=== PATIENT | male | born 1980 | race African-American/Black ===

== ENCOUNTER 2017-03-16 08:56 | Emergency (ER) | payer SELFPAY ==
[2017-03-16] MEDS ORDERED: predniSONE 20 MG TAB ONE (09:28)
[2017-03-16] MEDS ORDERED: Albuterol Sulfate 2.5 mg/0.5 ml Neb ONE (09:29)
== END 2017-03-16 09:45 | disposition home or self-care (01) ==
LOC: ERS 08:56
DX: J45.901 Unspecified asthma with (acute) exacerbation (principal); I10 Essential (primary) hypertension
CPT/HCPCS: 94640; J7506; J7611; J7620

== ENCOUNTER 2017-04-16 11:07 | Emergency (ER) | payer SELFPAY ==
[2017-04-16] MEDS ORDERED: Albuterol Sulfate 2.5 mg/3 ml Neb ONE (11:16)
[2017-04-16] MEDS ORDERED: Albuterol Sulfate 2.5 mg/0.5 ml Neb ONE ×3 (11:16)
[2017-04-16] MEDS ORDERED: predniSONE 20 MG TAB ONE (11:24)
== END 2017-04-16 12:58 | disposition home or self-care (01) ==
LOC: ERS 11:07
DX: J45.901 Unspecified asthma with (acute) exacerbation (principal); I10 Essential (primary) hypertension
CPT/HCPCS: 94644; J7506; J7611

== ENCOUNTER 2017-04-24 11:41 | Emergency (ER) | payer SELFPAY ==
--- NOTE | 2017-04-24 13:10 | RAD ---
AP VIEW OF CHEST: Date: 04/24/17 INDICATION: Cough. COMPARISON: Prior exam dated 08/24/14. IMPRESSION: No acute cardiopulmonary abnormality. COMMENTS: No air space consolidation or pleural effusion is evident. Cardiomediastinal silhouette is within no rmal limits. No acute osseous abnormality is evident. POS: [facility]
== END 2017-04-24 13:34 | disposition home or self-care (01) ==
LOC: ERS 11:41
DX: J45.909 Unspecified asthma, uncomplicated (principal)
CPT/HCPCS: 71010; 94640; J7620

== ENCOUNTER 2017-05-04 11:35 | Inpatient (IN) | payer SELFPAY ==
[2017-05-04] MEDS ORDERED: Magnesium Sulfate 2 GM/100 ML BAG ONE (11:49)
[2017-05-04] MEDS ORDERED: Dexamethasone 4 mg/ml Vial ONE (11:49)
[2017-05-04] MEDS ORDERED: Albuterol Sulfate 2.5 mg/0.5 ml Neb ONE ×2 (11:53→13:10)
[2017-05-04] MEDS ORDERED: Albuterol Sulfate 2.5 mg/3 ml Neb ONE ×2 (11:54→13:11)
[2017-05-04 12:11] LABS: #Basophils 0.1 thou/uL (0.0-0.2); #Eosinphils 0.4 thou/uL (0.0-0.7); #Lymphocytes 1.9 thou/uL (1.20-3.40); #Neutrophils 6.3 thou/uL (1.40-6.50); %Basophils 0.9 % (0.0-1.0); %Lymphocytes 19.8 % (21.0-51.0); %Monocytes 10.2 % (0.0-10.0); Hematocrit 46.6 % (42.0-52.0); Red Blood Cell (RBC) Count 5.13 mill/uL (4.70-6.10); White Blood Cell (WBC) Count 9.7 thou/uL (4.8-10.8)
--- NOTE | 2017-05-04 12:25 | RAD ---
EXAM: ONE VIEW CHEST: HISTORY: Shortness of breath. Dyspnea. COMPARISON: 05/09/17. FINDINGS: Portable upright chest demonstrates a normal cardiac silhouette. The pulmonary vessels and hilum ar e normal. No consolidation or mass. No pneumothorax or osseous abnormalities. IMPRESSION: No acute cardiopulmonary process. POS: [facility]
[2017-05-04 12:33] LABS: ALT (SGPT) 26 U/L (8-55); AST (SGOT) 23 U/L (5-34); Alkaline Phosphatase 97 U/L (40-150); Anion Gap 10 mmol/L (10-20); BUN (Urea Nitrogen) 11 mg/dL (8.9-20.6); Bilirubin, Total 1.1 mg/dL (0.2-1.2); Calc. Creatinine Clearance 0 mL/min (70-130); Carbon Dioxide 26 mmol/L (22-29); Chloride 107 mmol/L (98-107); Estimated GFR-MDRD Greater than 90; Globulin 3.2 g/dL (2.4-3.5)
[2017-05-04] MEDS ORDERED: Diabetic Tussin 200 MG/10 ML UDCUP PO PRN (14:53)
[2017-05-04] MEDS ORDERED: Senokot 8.6 MG TAB PO PRN (14:53)
[2017-05-04] MEDS ORDERED: Mag-Al 1200 mg/1200 mg/30 ML UDCUP PO PRN (14:53)
[2017-05-04] MEDS ORDERED: Artificial Tears 18 DROP/0.9 ML EA EYE PRN (14:53)
[2017-05-04] MEDS ORDERED: Milk Of Magnesia 30 ML UDCUP PO PRN (14:53)
[2017-05-04] MEDS ORDERED: hydrALAZINE 20 MG/ML VIAL SLOW IVP PRN (14:53)
[2017-05-04] MEDS ORDERED: Ondansetron HCl/PF 4 MG/2 ML Vial IVP PRN (14:53)
[2017-05-04] MEDS ORDERED: Sodium Chloride 0.65% Nasal 44 ML BOT EA NARE PRN (14:53)
[2017-05-04] MEDS ORDERED: Benzonatate 100 MG CAP PO PRN (14:53)
[2017-05-04] MEDS ORDERED: Chloraseptic Spray 180 ml Bottle PO PRN (14:53)
[2017-05-04] MEDS ORDERED: Ondansetron ODT 4 MG TAB PO PRN (14:53)
[2017-05-04] MEDS ORDERED: Loperamide HCl 2 MG CAP PO PRN (14:53)
[2017-05-04] MEDS ORDERED: Eucerin (Mineral Oil/Petrolatum,White) 30 gm Jar TOP PRN (14:53)
[2017-05-04] MEDS ORDERED: cloNIDine 0.1 MG TAB PO PRN (14:53)
[2017-05-04] MEDS ORDERED: Zolpidem Tartrate 5 MG TAB PO PRN (14:53)
[2017-05-04] MEDS ORDERED: Potassium Chloride 20 MEQ TAB PO SCH (15:00)
[2017-05-04 15:19] VITALS: BMI 60.2
[2017-05-04] MEDS ORDERED: FLU VACC QS2017-18 36 mo. & older 0.5 ML SYRINGE IM ONE (15:45)
[2017-05-04] MEDS: Albuterol Sulfate 2.5 mg/3 ml Neb NEB SCH ×2 (18:02→23:35)
--- NOTE | 2017-05-04 18:51 | HP ---
PRIMARY CARE PHYSICIAN: [facility] call admission. REASON FOR ADMISSION: Acute asthma exacerbation. HISTORY OF PRESENT ILLNESS: A 36-year-old -[place] male who has underlying history of asthma as well as morbid obesity, who came to the emergency room with the complaint of increasing shortness of breath for the last 2 weeks, which was gradually getting worse. Patient's symptoms have gotten worse because he also developed upper respiratory infection with a runny nose. He denies any sore throat everyday. He has cough productive of white sputum during daytime and during night time. He also gets brownish yellowish sputum. He denies any fever. He denies any chest pain, but he is feeling his chest is completely congested. He is also feeling that his noses stuffed up. He is not able to breathe and during night time he was not able to sleep well because he has to wake up several times because of difficulty breathing. He was feeling daytime fatigue. He denies any daytime somnolence. He denies any nausea, vomiting, diarrhea or urinary tract infection symptoms. Patient reports that for the last 2 weeks, he was requiring more and more use of nebulizer. Even after that, patient's condition was not improving that was affecting his daily activity and that is why he decided to go to the emergency room for evaluation. In the emergency room, patient was appeared in wheezing bilaterally. He was given several rounds of DuoNeb, albuterol nebulization as well as magnesium sulfate. Even after emergency room treatment, the patient was not feeling up to his normal and that is why ER physician decided to keep this patient in the hospital. The patient denies any pleuritic chest pain. He denies any hemoptysis. He denies any calf tenderness. He denies any . He denies any dizziness or syncope. He denies any exertion related chest pain, palpitation. ALLERGIES: The patient is not tolerating VICODIN. CURRENT HOME MEDICATIONS: Singulair 10 mg p.o. daily, Claritin 10 mg daily, Flonase nasal spray daily, albuterol nebulization every 4 hourly p.r.n. REVIEW OF SYSTEMS: The following complete review of systems was negative, unless otherwise mentioned in the HPI or below: CONSTITUTIONAL: Weight loss or gain, ability to conduct usual activities. SKIN: Rash, itching. EYES: Double vision, pain. ENT/MOUTH: Nose bleeding, neck stiffness, pain, tenderness. CARDIOVASCULAR: Palpitations, dyspnea on exertion, orthopnea. RESPIRATORY: Shortness of breath, wheezing, cough, hemoptysis, fever or night sweats. GASTROINTESTINAL: Poor appetite, abdominal pain, heartburn, nausea, vomiting, constipation, or diarrhea. GENITOURINARY: Urgency, frequency, dysuria, nocturia. MUSCULOSKELETAL: Pain, swelling. NEUROLOGIC/PSYCHIATRIC: Anxiety, depression. ALLERGY/IMMUNOLOGIC: Skin rash, bleeding tendency. Please see my HPI for pertinent positives and negatives. All other review of systems reviewed and negative except as mentioned in the HPI. PAST MEDICAL HISTORY: Morbid obesity, asthma. PAST SURGICAL HISTORY: Left knee surgery x3 for Staph infection. PAST PSYCHIATRIC HISTORY: Reviewed and negative. SOCIAL HISTORY: Patient is working for maintenance for [employer]. He denies any alcohol, tobacco or other illicit drug abuse. He denies any smoking. FAMILY HISTORY: No strong family history of premature coronary artery disease, stroke or cancer. EMERGENCY ROOM COURSE: Patient is given albuterol nebulization x2, Decadron 10 mg IV push, magnesium sulfate 2 gram and IV fluid 1 liter. PHYSICAL EXAMINATION: VITAL SIGNS: On arrival, blood pressure 177/99, pulse 133, respiratory rate 28 , temperature 98.4, saturation 100% on room air. Weight 174.6 kilograms. GENERAL: Patient is currently alert, awake, in mild respiratory distress. HEAD: Normocephalic, atraumatic. EYES: Pupils round, reactive to light. Extraocular muscles intact. ENT: Both nose are stuffed up especially on the right nose is more purulent material, so ear examination normal. Throat examination is normal without any exudate. NECK: Supple. Range of motion is normal. No meningeal signs of irritation, no JVD, no thyromegaly, no carotid bruits. LUNGS: Bilateral audible wheezing heard. No rales noted. No accessory muscles of respiration in use. Morbid obesity limiting examination. CARDIAC: S1, S2 regular, tachycardia, no murmur, no gallop, no rub. ABDOMEN: Morbid obesity limiting examination, but no peritoneal sign, no guarding, no rigidity, no rebound, no epigastric tenderness, no Verdugo sign. BACK: Unremarkable, no CVA tenderness. EXTREMITIES: Upper extremity: Passive movement of all joints are normal. Lower extremity: Bilateral lower extremity edema from venous insufficiency with chronic skin changes in lower extremity. Good distal pulsation. SKIN: No skin rash. HEMATOLOGICAL SYSTEM: No lymphadenopathy. PSYCHIATRIC: Normal affect. SIGNIFICANT LABS: EKG showing sinus tachycardia. Chest x-ray showing no acute cardiopulmonary process. CBC: WBC 9.7, hemoglobin 14.9, platelet 212. BMP: Sodium 140, potassium 3.4, chloride 107, carbon dioxide 26, BUN 11, creatinine 0.77, glucose 108, calcium 10.0. LFT: Total protein 7.0, albumin 3.8, alkaline phosphatase 97, AST 23, ALT 26. Chest x-ray based on my review, no acute cardiopulmonary process. ASSESSMENT AND PLAN/IMPRESSION: 1. Acute asthma exacerbation, likely precipitated by upper respiratory infection. At this point, the patient has tried his home treatment without any improvement. In the emergency room, he was given several albuterol nebulization , magnesium sulfate and Decadron. Even after that, he has no improvement. This patient will require admission to the hospital. We will continue with albuterol nebulization every 6 hourly on an as needed basis and Solu-Medrol 40 mg IV q.6 hourly, Dulera 2 puffs inhalation b.i.d., empiric antibiotic therapy with Levofloxacin 750 mg daily. Symptomatic treatment with Tessalon and Robitussin and we will also add Mucinex 600 mg twice daily. 2. Allergic rhinitis. We will also continue Flonase nasal spray daily, Singulair 10 mg p.o. daily and Claritin 10 mg p.o. daily. 3. Morbid obesity. Patient is suspected for sleep apnea at this point. Patient does not have insurance, he reports that his insurance will kick in, in July. At that time, I advised him to get outpatient sleep study to rule out any sleep apnea. Dietary education given. Healthy lifestyle measures discussed with the patient. 4. Hypokalemia. The patient already received magnesium in the emergency room. We will continue with potassium 40 mEq p.o. daily. 5. Deep venous thrombosis prophylaxis. Lovenox 40 mg subQ daily. 6. Gastrointestinal prophylaxis, Protonix 40 mg p.o. daily. 7. CODE STATUS: The patient is FULL CODE. Patient does not have any surrogate decision maker. Disposition plan based on clinical course, based on patient's severity, I am suspecting patient's stay in hospital more than 2 midnights. Plan of care discussed with the patient in detail. MTDD
[2017-05-04] MEDS: Mometasone/Formoterol 120 PUFF INHALER INH SCH (18:57)
[2017-05-04] MEDS: guaiFENesin ER 600 MG TAB PO SCH (20:44)
[2017-05-04] MEDS: Montelukast Sodium 10 mg Tablet PO SCH (20:44)
[2017-05-05] MEDS: Albuterol Sulfate 2.5 mg/3 ml Neb NEB SCH ×3 (05:56→18:11)
[2017-05-05] MEDS: Mometasone/Formoterol 120 PUFF INHALER INH SCH ×2 (05:58→18:13)
[2017-05-05] MEDS: Enoxaparin Sodium 40 MG/0.4 ML SYRINGE SC SCH (07:52)
[2017-05-05] MEDS: guaiFENesin ER 600 MG TAB PO SCH ×2 (07:52→19:52)
[2017-05-05] MEDS: Loratadine 10 MG TAB PO SCH (07:52)
[2017-05-05] MEDS: Fluticasone Propionate Nasal Spray 16 gm Bottle NASAL SCH (07:53)
[2017-05-05] MEDS ORDERED: Fluticasone Propionate Nasal Spray 16 gm Bottle NASAL SCH (09:00)
--- NOTE | 2017-05-05 11:50 | PDOC.PN ---
- Subjective Encounter Start Date: 05/05/17 Encounter Start Time: 08:50 -: old records requested/rev Patient seen and examined. No new complaints. No overnight events, still has dyspnea - Objective Resuscitation Status: Resuscitation Status FULL:Full Resuscitation MAR Reviewed: Yes Vital Signs & Weight: Vital Signs (12 hours) Temp Pulse Resp BP BP Pulse Ox 05/05/17 09:00 158/93 H 05/05/17 08:00 97.8 F 124 H 22 H 05/05/17 07:24 97.8 F 124 H 22 H 162/95 H 95 05/05/17 05:58 113 H 18 93 L 05/05/17 05:56 113 H 18 93 L 05/05/17 04:00 98.4 F 117 H 22 H 149/71 H 94 L 05/05/17 00:42 94 L 05/04/17 23:53 97.8 F 125 H 22 H 150/82 H 93 L Weight Weight 385 lb I&O: 05/04/17 05/05/17 05/06/17 06:59 06:59 06:59 Intake Total 1614 480 Balance 1614 480 Result Diagrams: 05/04/17 11:56 05/04/17 11:56 Phys Exam - Physical Examination Constitutional: NAD HEENT: PERRLA, moist MMs, sclera anicteric Neck: no JVD, supple Respiratory: no rales, wheezing present Cardiovascular: RRR, no significant murmur, no rub tachycardia Gastrointestinal: soft, non-tender, no distention, positive bowel sounds morbid obesity Musculoskeletal: pulses present, edema present Neurological: non-focal, normal sensation Lymphatic: no nodes Psychiatric: normal affect, A&O x 3 Skin: no rash, normal turgor Dx/Plan (1) Allergic rhinitis Code(s): J30.9 - ALLERGIC RHINITIS, UNSPECIFIED Status: Acute (2) Asthma exacerbation Code(s): J45.901 - UNSPECIFIED ASTHMA WITH (ACUTE) EXACERBATION Status: Acute (3) Hypertension Code(s): I10 - ESSENTIAL (PRIMARY) HYPERTENSION Status: Acute (4) Hypokalemia Code(s): E87.6 - HYPOKALEMIA Status: Acute (5) Sinus tachycardia Code(s): R00.0 - TACHYCARDIA, UNSPECIFIED Status: Acute (6) Morbid obesity with BMI of 60.0-69.9, adult Code(s): E66.01 - MORBID (SEVERE) OBESITY DUE TO EXCESS CALORIES; Z68.44 - BODY MASS INDEX (BMI) 60.0-69.9, ADULT Status: Chronic (7) MOLLY (obstructive sleep apnea) Code(s): G47.33 - OBSTRUCTIVE SLEEP APNEA (ADULT) (PEDIATRIC) Status: Suspected - Plan cont current plan of care, continue antibiotics, respiratory therapy * reduce solumedrol * will get CT angio chest for dyspnea and tachycardia * medication reviewed as below * symptomatic treatment * continue current optimum medical therapy for asthma * pt is not ready for discharge yet. Review of Systems - Review of Systems Constitutional: negative: Fever, Chills, Sweats, Weakness, Malaise, Other Eyes: negative: Pain, Vision Change, Conjunctivae Inflammation, Eyelid Inflammation, Redness, Other ENT: Nose Discharge. negative: Ear Pain, Ear Discharge, Nose Pain, Nose Congestion, Mouth Pain, Mouth Swelling, Throat Pain, Throat Swelling, Other Respiratory: Cough, Shortness of Breath, Wheezing. negative: Dry, Hemoptysis, SOB with Excertion, Pleuritic Pain, Sputum Cardiovascular: negative: Chest Pain, Palpitations, Orthopnea, Paroxysmal Noc. Dyspnea, Edema, Light Headedness, Other Gastrointestinal: negative: Nausea, Vomiting, Abdominal Pain, Diarrhea, Constipation, Melena, Hematochezia, Other Genitourinary: negative: Dysuria, Frequency, Incontinence, Hematuria, Retention , Other Musculoskeletal: negative: Neck Pain, Shoulder Pain, Arm Pain, Back Pain, Hand Pain, Leg Pain, Foot Pain, Other Skin: negative: Rash, Lesions, Arvind, Bruising, Other - Medications/Allergies Allergies/Adverse Reactions: Allergies Allergy/AdvReac Type Severity Reaction Status Date / Time acetaminophen [From Vicodin] Allergy Verified 05/04/17 15:20 hydrocodone bitartrate Allergy Verified 05/04/17 15:20 [From Vicodin] Medications: Current Medications Al Hydroxide/Mg Hydroxide (Maalox) 30 ml PO Q6H PRN PRN Reason: Heartburn or Indigestion Albuterol Sulfate (Ventolin) 2.5 mg NEB [id number] NARESH Last Admin: 05/05/17 05:56 Dose: 2.5 mg Artificial Tears (Tears Naturale) 0 drop EA EYE PRN PRN PRN Reason: Dry Eyes Benzonatate (Tessalon) 200 mg PO Q6H PRN PRN Reason: Cough Clonidine (Catapres) 0.1 mg PO Q4H PRN PRN Reason: Systolic BP > 180 Enoxaparin Sodium (Lovenox) 40 mg SC 0900 [facility] Last Admin: 05/05/17 07:52 Dose: Not Given Fluticasone Propionate (Flonase Nasal [place]) 0 gm NASAL DAILY [facility] Last Admin: 05/05/17 07:53 Dose: 1 spr Guaifenesin (Robitussin Sf) 200 mg PO Q4H PRN PRN Reason: Cough Guaifenesin (Mucinex) 600 mg PO Q12HR [facility] Last Admin: 05/05/17 07:52 Dose: 600 mg Hydralazine HCl (Apresoline) 10 mg SLOW IVP Q4H PRN PRN Reason: Systolic BP > 180 Levofloxacin 750 mg/ Device 150 mls @ 100 mls/hr IVPB 1500 [facility] Last Admin: 05/04/17 16:02 Dose: 150 mls Loperamide HCl (Imodium) 2 mg PO PRN PRN PRN Reason: Diarrhea/Loose Stools Loratadine (Claritin) 10 mg PO DAILY [facility] Last Admin: 05/05/17 07:52 Dose: 10 mg Magnesium Hydroxide (Milk Of Magnesium) 30 ml PO DAILYPRN PRN PRN Reason: Constipation Methylprednisolone Sodium Succinate (Solu-Medrol) 20 mg IVP Q8HR [facility] Mineral Oil/White Petrolatum (Eucerin Cream) 0 gm TOP BIDPRN PRN PRN Reason: Dry Skin Mometasone Furoate/Formoterol Fumar (Dulera 200 Mcg/5 Mcg Inhaler) 2 puff INH BID-RT [facility] Last Admin: 05/05/17 05:58 Dose: 2 puff Montelukast Sodium (Singulair) 10 mg PO QPM [facility] Last Admin: 05/04/17 20:44 Dose: 10 mg Ondansetron HCl (Zofran Odt) 4 mg PO Q6H PRN PRN Reason: Nausea/Vomiting Ondansetron HCl (Zofran) 4 mg IVP Q6H PRN PRN Reason: Nausea/Vomiting Pantoprazole Sodium (Protonix) 40 mg PO DAILY [facility] Last Admin: 05/05/17 07:52 Dose: 40 mg Phenol (Chloraseptic [place] 180 Ml Bot) 0 ml PO PRN PRN PRN Reason: Sore Throat Senna (Senokot) 2 tab PO HSPRN PRN PRN Reason: Constipation Sodium Chloride ([place] Nasal [place] 0.65%) 0 ml EA NARE QIDPRN PRN PRN Reason: Nasal Congestion Sodium Chloride (Flush - Normal Saline) 10 ml IVF Q12HR NARESH Sodium Chloride (Flush - Normal Saline) 10 ml IVF PRN PRN PRN Reason: Saline Flush Zolpidem Tartrate (Ambien) 5 mg PO HSPRN PRN PRN Reason: Insomnia
[2017-05-05] MEDS ORDERED: ISOVUE-370 76%-LOCM 1 ML ONE (14:19)
--- NOTE | 2017-05-05 15:54 | CT ---
CT ANGIO OF CHEST PERFORMED WITH INTRAVENOUS CONTRAST ENHANCEMENT WITH 3D RECONSTRUCTION 05/05/17 HISTORY: Shortness of breath, tachypnea. The lungs show some minimal interstitial change in the left upper lobe. This could represent some min imal patchy pneumonitis. No confluent process. No pulmonary nodules or pleural effusions. Some areas of air trapping demonstrated. There is somewhat prominent soft tissue density seen within the anterior mediastinum. In reviewing a previous examination, which was a CT of the neck performed 11/20/12, density appears fairly similar to that exam, probably represents prominent residual thymic tissue in this patient. The thoracic aorta is normal in caliber. This examination is nondiagnostic for evaluation for pulmonary embolus as the bolus is very suboptima l. The visualized liver parenchyma shows no focal findings. IMPRESSION: 1. Minimal interstitial change of the left upper lobe which could represent some minimal patchy pneumonitis. Evidence of some air trapping within the lungs. 2. Prominent soft tissue density in the anterior mediastinum. This probably represents prominent residual thymic tissue much more prominent than typically seen. There is an area of nodularity along the left posterior border of this but this finding is stable as compared to the previous 2013 study. 3. Nondiagnostic study for evaluation for pulmonary embolus. Consideration for nuclear medicine study is suggested. POS: [facility]
[2017-05-05] MEDS: Montelukast Sodium 10 mg Tablet PO SCH (19:52)
[2017-05-06] MEDS: Albuterol Sulfate 2.5 mg/3 ml Neb NEB SCH ×4 (00:14→18:21)
[2017-05-06 04:35] LABS: #Lymphocytes 0.7 thou/uL (1.20-3.40); #Monocytes 1.5 thou/uL (0.11-0.59); #Neutrophils 13.7 thou/uL (1.40-6.50); %Basophils 0.1 % (0.0-1.0); %Eosinophils 0.1 % (0.0-10.0); %Lymphocytes 4.1 % (21.0-51.0); %Monocytes 9.3 % (0.0-10.0); Hematocrit 45.4 % (42.0-52.0); Mean Platelet Volume 7.8 fL (7.4-10.4); Red Blood Cell (RBC) Count 4.95 mill/uL (4.70-6.10); White Blood Cell (WBC) Count 15.9 thou/uL (4.8-10.8)
[2017-05-06 04:49] LABS: Anion Gap 10 mmol/L (10-20); BUN (Urea Nitrogen) 11 mg/dL (8.9-20.6); BUN/Creatinine Ratio 14.67; Calc. Creatinine Clearance 336 mL/min (70-130); Calcium 9.5 mg/dL (7.8-10.44); Carbon Dioxide 29 mmol/L (22-29); Chloride 105 mmol/L (98-107); Estimated GFR-MDRD Greater than 90; Magnesium 2.3 mg/dL (1.6-2.6); Phosphorus 3.1 mg/dL (2.3-4.7)
[2017-05-06] MEDS: Mometasone/Formoterol 120 PUFF INHALER INH SCH ×2 (06:34→18:23)
--- NOTE | 2017-05-06 07:02 | PDOC.PN ---
- Subjective Encounter Start Date: 05/06/17 Encounter Start Time: 07:01 Patient seen and examined. No new complaints. No overnight events - Objective Resuscitation Status: Resuscitation Status FULL:Full Resuscitation MAR Reviewed: Yes Vital Signs & Weight: Vital Signs (12 hours) Temp Pulse Resp BP Pulse Ox 05/06/17 06:34 107 H 16 94 L 05/06/17 06:32 107 H 16 94 L 05/06/17 04:45 97.8 F 107 H 20 125/80 94 L 05/06/17 03:01 93 L 05/06/17 00:14 116 H 16 95 05/05/17 23:51 98.4 F 116 H 20 137/77 93 L 05/05/17 20:00 98.3 F 120 H 20 96 Weight Weight 385 lb I&O: 05/05/17 05/06/17 05/07/17 06:59 06:59 06:59 Intake Total 1614 2730 Output Total 350 Balance 1614 2380 Result Diagrams: 05/06/17 04:01 05/06/17 04:01 Radiology Reviewed by me: Yes (CTA) Phys Exam - Physical Examination Constitutional: NAD HEENT: PERRLA, moist MMs, sclera anicteric Neck: no JVD, supple Respiratory: no rales, wheezing present Cardiovascular: RRR, no significant murmur, no rub Gastrointestinal: soft, non-tender, no distention, positive bowel sounds morbid obesity Musculoskeletal: no edema, pulses present Neurological: non-focal, normal sensation Psychiatric: normal affect, A&O x 3 Skin: no rash, normal turgor Dx/Plan (1) Community acquired bacterial pneumonia Code(s): J15.9 - UNSPECIFIED BACTERIAL PNEUMONIA Status: Acute (2) Asthma exacerbation Code(s): J45.901 - UNSPECIFIED ASTHMA WITH (ACUTE) EXACERBATION Status: Acute (3) Allergic rhinitis Code(s): J30.9 - ALLERGIC RHINITIS, UNSPECIFIED Status: Acute (4) Hypertension Code(s): I10 - ESSENTIAL (PRIMARY) HYPERTENSION Status: Acute (5) Hypokalemia Code(s): E87.6 - HYPOKALEMIA Status: Resolved (6) Sinus tachycardia Code(s): R00.0 - TACHYCARDIA, UNSPECIFIED Status: Acute (7) Morbid obesity with BMI of 60.0-69.9, adult Code(s): E66.01 - MORBID (SEVERE) OBESITY DUE TO EXCESS CALORIES; Z68.44 - BODY MASS INDEX (BMI) 60.0-69.9, ADULT Status: Chronic (8) MOLLY (obstructive sleep apnea) Code(s): G47.33 - OBSTRUCTIVE SLEEP APNEA (ADULT) (PEDIATRIC) Status: Suspected - Plan cont current plan of care, continue antibiotics, respiratory therapy * medication reviewed as below * symptomatic treatment * pt is improving * continue current optimum medical therapy * if doing well will consider discharge soon * continue levaquin. Review of Systems - Review of Systems Constitutional: negative: Fever, Chills, Sweats, Weakness, Malaise, Other Eyes: negative: Pain, Vision Change, Conjunctivae Inflammation, Eyelid Inflammation, Redness, Other ENT: negative: Ear Pain, Ear Discharge, Nose Pain, Nose Discharge, Nose Congestion, Mouth Pain, Mouth Swelling, Throat Pain, Throat Swelling, Other Respiratory: Cough, Shortness of Breath, Wheezing. negative: Dry, Hemoptysis, SOB with Excertion, Pleuritic Pain, Sputum Cardiovascular: negative: Chest Pain, Palpitations, Orthopnea, Paroxysmal Noc. Dyspnea, Edema, Light Headedness, Other Gastrointestinal: negative: Nausea, Vomiting, Abdominal Pain, Diarrhea, Constipation, Melena, Hematochezia, Other Genitourinary: negative: Dysuria, Frequency, Incontinence, Hematuria, Retention , Other Musculoskeletal: negative: Neck Pain, Shoulder Pain, Arm Pain, Back Pain, Hand Pain, Leg Pain, Foot Pain, Other Skin: negative: Rash, Lesions, Arvind, Bruising, Other - Medications/Allergies Allergies/Adverse Reactions: Allergies Allergy/AdvReac Type Severity Reaction Status Date / Time acetaminophen [From Vicodin] Allergy Verified 05/04/17 15:20 hydrocodone bitartrate Allergy Verified 05/04/17 15:20 [From Vicodin] Medications: Current Medications Al Hydroxide/Mg Hydroxide (Maalox) 30 ml PO Q6H PRN PRN Reason: Heartburn or Indigestion Albuterol Sulfate (Ventolin) 2.5 mg NEB [id number] NARESH Last Admin: 05/06/17 06:32 Dose: 2.5 mg Artificial Tears (Tears Naturale) 0 drop EA EYE PRN PRN PRN Reason: Dry Eyes Benzonatate (Tessalon) 200 mg PO Q6H PRN PRN Reason: Cough Clonidine (Catapres) 0.1 mg PO Q4H PRN PRN Reason: Systolic BP > 180 Enoxaparin Sodium (Lovenox) 40 mg SC 0900 [facility] Last Admin: 05/05/17 07:52 Dose: Not Given Fluticasone Propionate (Flonase Nasal [place]) 0 gm NASAL DAILY [facility] Last Admin: 05/05/17 07:53 Dose: 1 spr Guaifenesin (Robitussin Sf) 200 mg PO Q4H PRN PRN Reason: Cough Guaifenesin (Mucinex) 600 mg PO Q12HR [facility] Last Admin: 05/05/17 19:52 Dose: 600 mg Hydralazine HCl (Apresoline) 10 mg SLOW IVP Q4H PRN PRN Reason: Systolic BP > 180 Levofloxacin 750 mg/ Device 150 mls @ 100 mls/hr IVPB 1500 [facility] Last Admin: 05/05/17 14:21 Dose: 150 mls Loperamide HCl (Imodium) 2 mg PO PRN PRN PRN Reason: Diarrhea/Loose Stools Loratadine (Claritin) 10 mg PO DAILY [facility] Last Admin: 05/05/17 07:52 Dose: 10 mg Magnesium Hydroxide (Milk Of Magnesium) 30 ml PO DAILYPRN PRN PRN Reason: Constipation Methylprednisolone Sodium Succinate (Solu-Medrol) 20 mg IVP Q8HR [facility] Last Admin: 05/06/17 05:22 Dose: 20 mg Mineral Oil/White Petrolatum (Eucerin Cream) 0 gm TOP BIDPRN PRN PRN Reason: Dry Skin Mometasone Furoate/Formoterol Fumar (Dulera 200 Mcg/5 Mcg Inhaler) 2 puff INH BID-RT [facility] Last Admin: 05/06/17 06:34 Dose: 2 puff Montelukast Sodium (Singulair) 10 mg PO QPM [facility] Last Admin: 05/05/17 19:52 Dose: 10 mg Ondansetron HCl (Zofran Odt) 4 mg PO Q6H PRN PRN Reason: Nausea/Vomiting Ondansetron HCl (Zofran) 4 mg IVP Q6H PRN PRN Reason: Nausea/Vomiting Pantoprazole Sodium (Protonix) 40 mg PO DAILY [facility] Last Admin: 05/05/17 07:52 Dose: 40 mg Phenol (Chloraseptic [place] 180 Ml Bot) 0 ml PO PRN PRN PRN Reason: Sore Throat Senna (Senokot) 2 tab PO HSPRN PRN PRN Reason: Constipation Sodium Chloride ([place] Nasal [place] 0.65%) 0 ml EA NARE QIDPRN PRN PRN Reason: Nasal Congestion Sodium Chloride (Flush - Normal Saline) 10 ml IVF Q12HR [facility] Last Admin: 05/05/17 19:53 Dose: 10 ml Sodium Chloride (Flush - Normal Saline) 10 ml IVF PRN PRN PRN Reason: Saline Flush Zolpidem Tartrate (Ambien) 5 mg PO HSPRN PRN PRN Reason: Insomnia
[2017-05-06] MEDS: Loratadine 10 MG TAB PO SCH (08:36)
[2017-05-06] MEDS: guaiFENesin ER 600 MG TAB PO SCH ×2 (08:36→20:38)
[2017-05-06] MEDS: Enoxaparin Sodium 40 MG/0.4 ML SYRINGE SC SCH (08:39)
[2017-05-06] MEDS: Fluticasone Propionate Nasal Spray 16 gm Bottle NASAL SCH (08:39)
[2017-05-06] MEDS ORDERED: Ketorolac Tromethamine 30 MG/ML VIAL ONE (11:05)
[2017-05-06] MEDS ORDERED: Ibuprofen 200 MG TAB PO PRN (12:19)
[2017-05-06] MEDS: Montelukast Sodium 10 mg Tablet PO SCH (20:37)
[2017-05-07] MEDS: Albuterol Sulfate 2.5 mg/3 ml Neb NEB SCH ×2 (00:38→06:17)
[2017-05-07 05:40] VITALS: TEMP 97.8
[2017-05-07] MEDS: Mometasone/Formoterol 120 PUFF INHALER INH SCH (06:18)
[2017-05-07 07:12] VITALS: BP 138/91
--- NOTE | 2017-05-07 07:54 | PDOC.PN ---
- Subjective Encounter Start Date: 05/07/17 Encounter Start Time: 07:52 Mr. Winslow was seen today in follow-up of Asthma. He says he is feeling today. He is breathing better, and says he has been able to walk some without difficulty. - Objective Resuscitation Status: Resuscitation Status FULL:Full Resuscitation MAR Reviewed: Yes Vital Signs & Weight: Vital Signs (12 hours) Temp Pulse Resp BP BP Pulse Ox 05/07/17 07:11 97.8 F 100 22 H 138/91 H 100 05/07/17 06:17 98 16 97 05/07/17 04:30 97.8 F 98 18 128/84 97 05/07/17 00:52 96 05/07/17 00:38 109 H 16 05/06/17 20:00 98.4 F 109 H 20 Weight Weight 385 lb I&O: 05/06/17 05/07/17 05/08/17 06:59 06:59 06:59 Intake Total 2730 1200 Output Total 350 Balance 2380 1200 Result Diagrams: 05/06/17 04:01 05/06/17 04:01 Phys Exam - Physical Examination HEENT: PERRLA Respiratory: wheezing present +Faint wheeze, no rales or rhonchi Cardiovascular: RRR, no significant murmur Gastrointestinal: soft, non-tender, positive bowel sounds Musculoskeletal: no edema Dx/Plan (1) Allergic rhinitis Code(s): J30.9 - ALLERGIC RHINITIS, UNSPECIFIED Status: Acute (2) Asthma exacerbation Code(s): J45.901 - UNSPECIFIED ASTHMA WITH (ACUTE) EXACERBATION Status: Acute (3) Morbid obesity with BMI of 60.0-69.9, adult Code(s): E66.01 - MORBID (SEVERE) OBESITY DUE TO EXCESS CALORIES; Z68.44 - BODY MASS INDEX (BMI) 60.0-69.9, ADULT Status: Chronic (4) MOLLY (obstructive sleep apnea) Code(s): G47.33 - OBSTRUCTIVE SLEEP APNEA (ADULT) (PEDIATRIC) Status: Suspected - Plan * Acute respiratory failure due to Asthma exacerbation- improved * He is stable for discharge, and can transition to oral antibiotics, and Steroids, and inhales * Close outpatient follow-up at [facility] * MOLLY- stable
[2017-05-07] MEDS: Enoxaparin Sodium 40 MG/0.4 ML SYRINGE SC SCH (09:20)
[2017-05-07] MEDS: Loratadine 10 MG TAB PO SCH (09:23)
[2017-05-07] MEDS: guaiFENesin ER 600 MG TAB PO SCH (09:23)
[2017-05-07] MEDS: Fluticasone Propionate Nasal Spray 16 gm Bottle NASAL SCH (09:23)
--- NOTE | 2017-05-07 12:03 | DIS ---
DATE OF ADMISSION: 05/04/2017 DATE OF DISCHARGE: 05/07/2017 PRIMARY CARE PHYSICIAN: [facility]. DISCHARGE DISPOSITION: Home. PRIMARY DISCHARGE DIAGNOSES: 1. Acute respiratory failure secondary to asthma exacerbation. 2. Asthma exacerbation. 3. Morbid obesity. 4. History of obstructive sleep apnea. DISCHARGE MEDICATIONS: Include Dulera inhaler 200 mcg/5 two puffs twice daily, montelukast 10 mg ty ly, prednisone 10 mg daily, Claritin 10 mg daily, Levaquin 500 mg daily for 5 days and albuterol nebs . PROCEDURES DONE DURING ADMISSION: The patient had a CT angiogram of the chest which was negative for pulmonary embolism; however, there was minimal interstitial change in the left upper lobe which coul d represent some minimal pneumonitis and a prominent soft tissue density in the anterior mediastinum. However, this area was stable since the prior study in 2012. CODE STATUS: FULL CODE. ALLERGIES: To ACETAMINOPHEN and HYDROCODONE. HOSPITAL COURSE: Mr. Winslow is a pleasant 36-year-old gentleman who was admitted to the hospital after complaining of difficulty breathing and wheezing, cough, and congestion. He was found to have an as thma exacerbation as he has a history of chronic asthma. He was treated with IV antibiotics as well as IV steroids and neb treatments and improved over the course of the next few days. If possible samira t his trigger is [place] been [place] since he had lived [facility] and it is likely that this possibly triggered his attack. He denies smoking. However, he did imp rove with treatment and will have close outpatient followup at the [facility].
== END 2017-05-07 11:32 | disposition home or self-care (01) | DRG 202 ==
LOC: ERS 11:35 → T4-A 14:03
PROVIDERS: ADMIT Internal Medicine; ATTEND Internal Medicine
DX: J45.901 Unspecified asthma with (acute) exacerbation (principal); J96.00 Acute respiratory failure, unspecified whether with hypoxia or hypercapnia; Z68.44 Body mass index [BMI] 60.0-69.9, adult; E66.01 Morbid (severe) obesity due to excess calories; J30.9 Allergic rhinitis, unspecified; E87.6 Hypokalemia; Z23 Encounter for immunization; G47.33 Obstructive sleep apnea (adult) (pediatric); R00.0 Tachycardia, unspecified
CPT/HCPCS: 36415; 71010; 71275; 80053; 80069; 83735; 85025; 87040; 90471; 90682; 93005; 94640; 96365; 96375; A4216; G0008; J1100; J1650; J1885; J1956; J2920; J3475; J7611; Q2036

== ENCOUNTER 2017-05-22 08:40 | Emergency (ER) | payer SELFPAY ==
[2017-05-22] MEDS ORDERED: Albuterol Sulfate 2.5 mg/3 ml Neb ONE (09:05)
[2017-05-22] MEDS ORDERED: Dexamethasone 10 MG/ML VIAL ONE (09:07)
--- NOTE | 2017-05-22 09:16 | RAD ---
CHEST 1 VIEW: Date: 05/22/17 HISTORY: Dyspnea. COMPARISON: Chest 1 view dated 05/04/17. FINDINGS: Lungs are clear. No pneumothorax or effusion. Cardiac silhouette and mediastinal contours are within normal limits. IMPRESSION: No acute intrathoracic abnormality. POS: [facility]
== END 2017-05-22 10:00 | disposition home or self-care (01) ==
LOC: ERS 08:40
DX: J45.901 Unspecified asthma with (acute) exacerbation (principal); Z79.899 Other long term (current) drug therapy
CPT/HCPCS: 71010; 94640; 96372; J1100; J7611; J7620

== ENCOUNTER 2017-06-08 14:20 | Emergency (ER) | payer SELFPAY ==
--- NOTE | 2017-06-08 15:11 | RAD ---
CHEST TWO VIEWS HISTORY: Dyspnea. COMPARISON: 05/22/2017. FINDINGS: Cardiac silhouette and pulmonary vasculature are unremarkable. Mediastinum is midline. There is no confluent air space consolidation, pneumothorax, or pleural fluid evident. IMPRESSION: No active cardiopulmonary abnormalities are demonstrated. POS: [facility]
[2017-06-08 15:37] LABS: #Basophils 0.2 thou/uL (0.0-0.2); #Eosinphils 0.3 thou/uL (0.0-0.7); #Lymphocytes 1.6 thou/uL (1.20-3.40); #Neutrophils 4.1 thou/uL (1.40-6.50); %Basophils 2.4 % (0.0-1.0); %Eosinophils 4.3 % (0.0-10.0); %Lymphocytes 22.1 % (21.0-51.0); %Monocytes 14.2 % (0.0-10.0); Mean Platelet Volume 7.8 fL (7.4-10.4); White Blood Cell (WBC) Count 7.1 thou/uL (4.8-10.8)
[2017-06-08 15:56] LABS: ALT (SGPT) 32 U/L (8-55); AST (SGOT) 31 U/L (5-34); Alkaline Phosphatase 95 U/L (40-150); Anion Gap 13 mmol/L (10-20); BUN (Urea Nitrogen) 9 mg/dL (8.9-20.6); Bilirubin, Total 1.6 mg/dL (0.2-1.2); Calc. Creatinine Clearance 0 mL/min (70-130); Calcium 10.2 mg/dL (7.8-10.44); Carbon Dioxide 25 mmol/L (22-29); Chloride 105 mmol/L (98-107); Estimated GFR-MDRD Greater than 90; Globulin 3.4 g/dL (2.4-3.5); Protein, Total 7.3 g/dL (6.0-8.3)
[2017-06-08] MEDS ORDERED: Water For Inject, Bacteriostat 30 ML ONE (16:36)
[2017-06-08] MEDS ORDERED: methylPREDNISolone Sod Succ/PF 125 MG/2 ML VIAL ONE (16:36)
--- NOTE | 2017-07-04 20:53 | EKG ---
Test Reason : Blood Pressure : / mmHG Vent. Rate : 122 BPM Atrial Rate : 122 BPM P-R Int : 124 ms QRS Dur : 070 ms QT Int : 292 ms P-R-T Axes : 046 031 027 degrees QTc Int : 416 ms Sinus tachycardia Otherwise normal ECG Confirmed by HUMZA YIP, KIANNA ([id number]), editorial cartoonist GEORGE PASCAL ([id number]) on 07/04/2017 8:52:25 PM Referred By: Confirmed By:KIANNA CHING MD
== END 2017-06-08 17:53 | disposition home or self-care (01) ==
LOC: ERS 14:20
DX: J45.901 Unspecified asthma with (acute) exacerbation (principal)
CPT/HCPCS: 36415; 71020; 80053; 85025; 93005; 94640; 96361; 96374; J2930; J7620

== ENCOUNTER 2017-10-12 07:22 | Emergency (ER) | payer SELFPAY ==
[2017-10-12] MEDS ORDERED: Albuterol Sulfate 2.5 mg/0.5 ml Neb ONE ×4 (08:52)
== END 2017-10-12 09:04 | disposition home or self-care (01) ==
LOC: ERS 07:22
DX: H60.92 Unspecified otitis externa, left ear (principal); J45.909 Unspecified asthma, uncomplicated; Z79.899 Other long term (current) drug therapy
CPT/HCPCS: 94640; J7611; J7620

== ENCOUNTER 2018-07-11 13:25 | Emergency (ER) | payer SELFPAY | END 2018-07-11 13:59 | disposition home or self-care (01) | LOC: ERS 13:25 | DX: K04.7 Periapical abscess without sinus (principal); K02.9 Dental caries, unspecified; J45.909 Unspecified asthma, uncomplicated | CPT/HCPCS: 99282 ==

== ENCOUNTER 2018-07-12 18:57 | Emergency (ER) | payer SELFPAY | END 2018-07-12 20:15 | disposition home or self-care (01) | LOC: ERS 18:57 | DX: K03.81 Cracked tooth (principal); E66.9 Obesity, unspecified; J45.909 Unspecified asthma, uncomplicated; Z79.891 Long term (current) use of opiate analgesic; Z79.899 Other long term (current) drug therapy | CPT/HCPCS: 99282 ==

== ENCOUNTER 2018-07-16 03:58 | Emergency (ER) | payer SELFPAY | END 2018-07-16 05:45 | disposition home or self-care (01) | LOC: ERS 03:58 | DX: K91.840 Postprocedural hemorrhage of a digestive system organ or structure following a digestive system procedure (principal); J45.909 Unspecified asthma, uncomplicated; Z79.899 Other long term (current) drug therapy; Z79.51 Long term (current) use of inhaled steroids | CPT/HCPCS: 99283 ==

== ENCOUNTER 2018-07-20 08:05 | Emergency (ER) | payer SELFPAY ==
[2018-07-20] MEDS ORDERED: Acetaminophen 500 MG TAB ONE (08:43)
[2018-07-20] MEDS ORDERED: AMOXicillin 250 MG CAP ONE (09:48)
== END 2018-07-20 09:51 | disposition home or self-care (01) ==
LOC: ERS 08:05
DX: H66.91 Otitis media, unspecified, right ear (principal); I10 Essential (primary) hypertension; J45.909 Unspecified asthma, uncomplicated
CPT/HCPCS: 99282

== ENCOUNTER 2018-08-24 07:44 | Emergency (ER) | payer SELFPAY ==
[2018-08-24] MEDS ORDERED: predniSONE 20 MG TAB ONE (07:58)
== END 2018-08-24 09:41 | disposition home or self-care (01) ==
LOC: ERS 07:44
DX: J45.901 Unspecified asthma with (acute) exacerbation (principal); I10 Essential (primary) hypertension
CPT/HCPCS: 94640; J7620

== ENCOUNTER 2018-09-22 18:47 | Emergency (ER) | payer SELFPAY ==
[2018-09-22] MEDS ORDERED: predniSONE 20 MG TAB ONE (19:23)
== END 2018-09-22 19:31 | disposition home or self-care (01) ==
LOC: ERS 18:47
DX: J45.901 Unspecified asthma with (acute) exacerbation (principal); I10 Essential (primary) hypertension; Z79.51 Long term (current) use of inhaled steroids
CPT/HCPCS: 94640; J7620

== ENCOUNTER 2018-12-17 06:29 | Emergency (ER) | payer SELFPAY ==
[2018-12-17] MEDS ORDERED: predniSONE 20 MG TAB ONE (07:00)
--- NOTE | 2018-12-17 07:45 | RAD ---
XR Chest Pa Lat STANDARD HISTORY: Dyspnea COMPARISON: 06/08/2017 FINDINGS: The heart size is normal. The lungs are well expanded without focal areas of consolidation, pneumothorax or pleural effusions. IMPRESSION: No radiographic evidence of acute cardiopulmonary process.
== END 2018-12-17 08:11 | disposition home or self-care (01) ==
LOC: ERS 06:29
DX: J45.901 Unspecified asthma with (acute) exacerbation (principal)
CPT/HCPCS: 71046; 94640; J7512; J7620

== ENCOUNTER 2019-11-08 11:28 | Emergency (ER) | payer SELFPAY ==
[2019-11-08] MEDS ORDERED: Cyclobenzaprine 10 MG TAB ONE ×2 (12:29→12:30)
[2019-11-08 12:57] LABS: Bacteria/HPF None Seen HPF (None Seen); Bilirubin Negative (Negative); Blood, Urine 1+ (Negative); Clarity Clear (Clear); Glucose, Urine (Dipstick) Normal (Negative); Leukocyte Negative Leu/uL (Negative); Nitrite Negative (Negative); Protein, Urine (Dipstick) Negative (Neg-Trace); Squamous Epithelial None Seen HPF (0-3); Urobilinogen 3 mg/dL (Less than 2); WBC/HPF 0-3 HPF (0-3)
== END 2019-11-08 14:00 | disposition home or self-care (01) ==
LOC: ERS 11:28
DX: M54.5 Low back pain (principal); I10 Essential (primary) hypertension; J45.909 Unspecified asthma, uncomplicated; Z79.51 Long term (current) use of inhaled steroids; Z79.899 Other long term (current) drug therapy
CPT/HCPCS: 81003; 81015; 99283

== ENCOUNTER 2020-02-29 13:17 | Emergency (ER) | payer SELFPAY ==
[2020-02-29] MEDS ORDERED: predniSONE 20 MG TAB ONE (13:33)
== END 2020-02-29 14:26 | disposition home or self-care (01) ==
LOC: ERS 13:17
DX: J45.901 Unspecified asthma with (acute) exacerbation (principal); I10 Essential (primary) hypertension; Z79.899 Other long term (current) drug therapy
CPT/HCPCS: 94640; J7512; J7620

== ENCOUNTER 2020-07-04 08:03 | Emergency (ER) | payer BC, SELFPAY ==
[2020-07-04] MEDS ORDERED: predniSONE 20 MG TAB ONE (08:35)
== END 2020-07-04 09:49 | disposition home or self-care (01) ==
LOC: ERS 08:03
DX: J45.901 Unspecified asthma with (acute) exacerbation (principal); I10 Essential (primary) hypertension; Z79.51 Long term (current) use of inhaled steroids
CPT/HCPCS: 94640; 94760; J7512; J7620

== ENCOUNTER 2020-11-07 06:25 | Emergency (ER) | payer BC, SELFPAY ==
[2020-11-07] MEDS ORDERED: Dexamethasone 10 MG/ML VIAL ONE (06:51)
== END 2020-11-07 08:15 | disposition home or self-care (01) ==
LOC: ERS 06:25
DX: J45.901 Unspecified asthma with (acute) exacerbation (principal); R00.0 Tachycardia, unspecified; I10 Essential (primary) hypertension
CPT/HCPCS: 94640; J1100; J7620

== ENCOUNTER 2021-06-04 10:33 | Emergency (ER) | payer SELFPAY ==
[2021-06-04] MEDS ORDERED: Lisinopril 10 MG TAB ONE (11:49)
[2021-06-04] MEDS ORDERED: Lisinopril 20 MG TAB PO SCH (12:30)
[2021-06-04] MEDS ORDERED: Hydrochlorothiazide 25 MG TAB PO SCH (12:30)
== END 2021-06-04 13:00 | disposition home or self-care (01) ==
LOC: ERS 10:33
DX: I10 Essential (primary) hypertension (principal); J45.909 Unspecified asthma, uncomplicated; Z79.899 Other long term (current) drug therapy
CPT/HCPCS: 99283

== ENCOUNTER 2022-10-31 08:10 | Emergency (ER) | payer BC, SELFPAY ==
[2022-10-31] MEDS ORDERED: Albuterol 2.5 MG/0.5 ML NEB ONE (08:33)
[2022-10-31] MEDS ORDERED: Ipratropium/Albuterol 3 ML NEB ONE (08:33)
[2022-10-31] MEDS ORDERED: methylPREDNISolone Sod Succ/PF 125 MG/2 ML VIAL ONE (08:34)
== END 2022-10-31 09:46 | disposition home or self-care (01) ==
LOC: ERS 08:10
DX: J45.901 Unspecified asthma with (acute) exacerbation (principal); I10 Essential (primary) hypertension
CPT/HCPCS: 96372; J2930; J7611; J7620

== ENCOUNTER 2023-04-29 07:37 | Emergency (ER) | payer BC, SELFPAY ==
[2023-04-29] MEDS ORDERED: Albuterol 200 PUFF (6.7GM INHALER) ONE (07:53)
[2023-04-29] MEDS ORDERED: predniSONE 20 MG TAB ONE (07:53)
== END 2023-04-29 08:42 | disposition home or self-care (01) ==
LOC: ERS 07:37
DX: J44.1 Chronic obstructive pulmonary disease with (acute) exacerbation (principal); I10 Essential (primary) hypertension
CPT/HCPCS: 71045; J7512

== ENCOUNTER 2023-08-23 21:11 | Emergency (ER) | payer SELFPAY ==
[2023-08-24] MEDS ORDERED: Ibuprofen 800 MG TAB ONE (01:25)
[2023-08-24 02:20] LABS: Influenza A by NAA Not Detected (NotDetected); Influenza B by NAA Not Detected (NotDetected); SARS-CoV-2 NAA Rapid Test Not Detected (NotDetected)
== END 2023-08-24 01:30 | disposition home or self-care (01) ==
LOC: ERS 21:11
DX: J06.9 Acute upper respiratory infection, unspecified (principal); J02.9 Acute pharyngitis, unspecified; Z20.822 Contact with and (suspected) exposure to COVID-19; J45.909 Unspecified asthma, uncomplicated; I10 Essential (primary) hypertension; Z79.51 Long term (current) use of inhaled steroids
CPT/HCPCS: 87081; 87430; 99283

== ENCOUNTER 2023-08-26 07:22 | Emergency (ER) | payer SELFPAY ==
[2023-08-26] MEDS ORDERED: Dexamethasone 10 MG/ML VIAL ONE (08:50)
[2023-08-26] MEDS ORDERED: Ketorolac Tromethamine 30 MG (1 mL) VIAL ONE (08:50)
[2023-08-26 09:11] LABS: #Eosinphils 0.1 thou/uL (0.0-0.7); #Monocytes 1.2 thou/uL (0.11-0.59); #Neutrophils 8.1 thou/uL (1.40-6.50); %Basophils 0.2 % (0.0-1.0); %Eosinophils 0.8 % (0.0-10.0); %Lymphocytes 12.8 % (21.0-51.0); %Monocytes 11.1 % (0.0-10.0); Hematocrit 47.8 % (42.0-52.0); Hemoglobin 16.2 g/dL (14.0-18.0); Mean Corpuscular HGB CONC 33.9 g/dL (32.0-36.0); Mean Corpuscular Hemoglobin 29.9 pg (27.0-31.0); Mean Corpuscular Volume 88.2 fl (78.0-98.0); Mean Platelet Volume 10.5 fL (7.4-10.4); Platelet Count 190 10x3/uL (130-400); RBC Distribution Width 12.6 % (11.5-14.5); Red Blood Cell (RBC) Count 5.42 mill/uL (4.70-6.10); White Blood Cell (WBC) Count 10.7 10x3/uL (4.8-10.8)
[2023-08-26 09:29] LABS: ALT (SGPT) 20 U/L (8-55); AST (SGOT) 16 U/L (5-34); Alkaline Phosphatase 76 U/L (40-110); Anion Gap 12 mmol/L (10-20); BUN (Urea Nitrogen) 7 mg/dL (8.9-20.6); Calc. Creatinine Clearance 0 mL/min (70-130); Calcium 9.2 mg/dL (7.8-10.44); Carbon Dioxide 26 mmol/L (22-29); Chloride 103 mmol/L (98-107); Estimated GFR 116; Globulin 3.2 g/dL (2.4-3.5); Glucose 104 mg/dL (70-105); Potassium 4.1 mmol/L (3.5-5.1); Protein, Total 7.2 g/dL (6.0-8.3); Sodium 137 mmol/L (136-145)
== END 2023-08-26 12:32 | disposition home or self-care (01) ==
LOC: ERS 07:22
DX: J18.9 Pneumonia, unspecified organism (principal); J03.90 Acute tonsillitis, unspecified; J45.909 Unspecified asthma, uncomplicated; I10 Essential (primary) hypertension; Z55.6 Problems related to health literacy; Z75.3 Unavailability and inaccessibility of health-care facilities
CPT/HCPCS: 36415; 70491; 71045; 80053; 83605; 85025; 87040; 87081; 87430; 96361; 96374; 96375; J1100; J1885

== ENCOUNTER 2023-12-09 07:47 | Emergency (ER) | payer BC ==
[2023-12-09] MEDS ORDERED: methylPREDNISolone Sod Succ/PF 125 MG/2 ML VIAL ONE (07:59)
== END 2023-12-09 09:13 | disposition home or self-care (01) ==
LOC: ERS 07:47
DX: J45.901 Unspecified asthma with (acute) exacerbation (principal); I10 Essential (primary) hypertension
CPT/HCPCS: 96372; J2930

== ENCOUNTER 2023-12-20 19:14 | Emergency (ER) | payer BC ==
[2023-12-20 20:13] LABS: #Basophils 0.12 10x3/uL (0.0-0.2); #Eosinphils Less than 0.03 10x3/uL (0.0-0.7); %Basophils 0.7 % (0.0-1.0); %Lymphocytes 3.7 % (21.0-51.0); %Monocytes 5.2 % (0.0-10.0); %Neutrophils 90.1 % (42.0-75.0); Hematocrit 46.6 % (42.0-52.0); Hemoglobin 16.3 g/dL (14.0-18.0); Mean Corpuscular Volume 88.8 fL (78.0-98.0); Mean Platelet Volume 9.9 fL (7.4-10.4); Platelet Count 141 10x3/uL (130-400); RBC Distribution Width 13.6 % (11.5-14.5); Red Blood Cell (RBC) Count 5.25 mill/uL (4.70-6.10)
[2023-12-20] MEDS ORDERED: Ibuprofen 800 MG TAB ONE (20:13)
[2023-12-20] MEDS ORDERED: Ondansetron PF 4 MG/2 ML Vial ONE (20:13)
[2023-12-20] MEDS ORDERED: predniSONE 20 MG TAB ONE (20:13)
[2023-12-20 20:29] LABS: ALT (SGPT) 23 U/L (8-55); AST (SGOT) 20 U/L (5-34); Albumin 3.1 g/dL (3.5-5.0); Alkaline Phosphatase 53 U/L (40-110); Anion Gap 15 mmol/L (10-20); BUN (Urea Nitrogen) 11 mg/dL (8.9-20.6); Bilirubin, Total 2.1 mg/dL (0.2-1.2); CK (CPK) 313 U/L (30-200); Calc. Creatinine Clearance 0 mL/min (70-130); Calcium 8.9 mg/dL (7.8-10.44); Carbon Dioxide 22 mmol/L (22-29); Chloride 101 mmol/L (98-107); Estimated GFR 104; Globulin 3.5 g/dL (2.4-3.5); Glucose 99 mg/dL (70-105); Potassium 3.7 mmol/L (3.5-5.1); Protein, Total 6.6 g/dL (6.0-8.3); Sodium 134 mmol/L (136-145)
[2023-12-20 20:33] LABS: Troponin I Less than 0.010 ng/mL (< 0.028)
[2023-12-20] MEDS ORDERED: Ipratropium/Albuterol 3 ML NEB ONE (21:05)
[2023-12-20 21:18] LABS: Influenza A by NAA Not Detected (NotDetected); Influenza B by NAA Not Detected (NotDetected); SARS-CoV-2 NAA Rapid Test Not Detected (NotDetected)
== END 2023-12-20 21:50 | disposition home or self-care (01) ==
LOC: ERS 19:14
DX: J18.9 Pneumonia, unspecified organism (principal); I10 Essential (primary) hypertension
CPT/HCPCS: 71045; 80053; 82550; 84484; 85025; 93005; 94640; 96374; J2405; J7512; J7620

== ENCOUNTER 2024-03-28 07:48 | Emergency (ER) | payer BC ==
[2024-03-28] MEDS ORDERED: Albuterol 200 PUFF (6.7GM INHALER) ONE (08:39)
[2024-03-28] MEDS ORDERED: predniSONE 20 MG TAB ONE (08:39)
== END 2024-03-28 08:54 | disposition home or self-care (01) ==
LOC: ERS 07:48
DX: J45.901 Unspecified asthma with (acute) exacerbation (principal); I10 Essential (primary) hypertension
CPT/HCPCS: 71046; J7512

== ENCOUNTER 2024-06-09 07:38 | Emergency (ER) | payer BC, SELFPAY ==
[2024-06-09] MEDS ORDERED: predniSONE 20 MG TAB ONE (07:45)
[2024-06-09] MEDS ORDERED: Ipratropium/Albuterol 3 ML NEB ONE (07:46)
== END 2024-06-09 09:04 | disposition home or self-care (01) ==
LOC: ERS 07:38
DX: J45.901 Unspecified asthma with (acute) exacerbation (principal); I10 Essential (primary) hypertension; Z79.899 Other long term (current) drug therapy
CPT/HCPCS: 71046; 87428; 94640; J7512; J7620

== ENCOUNTER 2025-02-09 09:02 | Emergency (ER) | payer SELFPAY ==
[2025-02-09] MEDS ORDERED: Ondansetron PF 4 MG/2 ML Vial ONE (09:31)
[2025-02-09 09:46] LABS: #Basophils Less than 0.03 10x3/uL (0.0-0.2); #Eosinophils 0.15 10x3/uL (0.0-0.7); #Monocytes 0.73 10x3/uL (0.11-0.59); #Neutrophils 4.61 10x3/uL (1.40-6.50); %Basophils 0.3 % (0.0-1.0); %Eosinophils 2.0 % (0.0-10.0); %Lymphocytes 24.4 % (21.0-51.0); %Monocytes 9.9 % (0.0-10.0); %Neutrophils 62.9 % (42.0-75.0); Hematocrit 46.1 % (42.0-52.0); Hemoglobin 14.9 g/dL (14.0-18.0); Mean Corpuscular Hemoglobin 27.9 pg (27.0-31.0); Mean Corpuscular Volume 86.2 fL (78.0-98.0); Platelet Count 215 10x3/uL (130-400); Red Blood Cell (RBC) Count 5.35 mill/uL (4.70-6.10); White Blood Cell (WBC) Count 7.34 10x3/uL (4.8-10.8)
[2025-02-09 10:27] LABS: ALT (SGPT) 22 U/L (Less than 45); AST (SGOT) 25 U/L (11-34); Albumin 3.4 g/dL (3.1-4.5); Alkaline Phosphatase 103 U/L (40-110); Anion Gap 12 mmol/L (10-20); BUN (Urea Nitrogen) 9 mg/dL (8.9-20.6); Bilirubin, Total 0.9 mg/dL (0.3-1.2); Calc. Creatinine Clearance 0 mL/min (70-130); Calcium 8.8 mg/dL (7.8-10.44); Carbon Dioxide 25 mmol/L (22-29); Chloride 107 mmol/L (98-107); Globulin 3.1 g/dL (2.4-3.5); Glucose 120 mg/dL (70-105); Potassium 3.7 mmol/L (3.5-5.1); Sodium 140 mmol/L (136-145)
== END 2025-02-09 16:30 | disposition home or self-care (01) ==
LOC: ERS 09:02
DX: M25.562 Pain in left knee (principal); I10 Essential (primary) hypertension; J45.909 Unspecified asthma, uncomplicated; V89.2XXA Person injured in unspecified motor-vehicle accident, traffic, initial encounter; Z79.51 Long term (current) use of inhaled steroids; Z79.899 Other long term (current) drug therapy
CPT/HCPCS: 71045; 71260; 80053; 85025; 93005; 96374; 96375; J2270; J2405